=== PATIENT | male | born 1975 | race Caucasian/White ===

== ENCOUNTER → 2017-07-01 | Outpatient (CLI) | payer BC | LOC: GMAJ 11:35 | PROVIDERS: ATTEND Family Medicine | DX: Z00.00 Encounter for general adult medical examination without abnormal findings (principal) ==

== ENCOUNTER → 2017-10-12 | Outpatient (CLI) | payer BC | LOC: GMAJ 11:17 | PROVIDERS: ATTEND Family Medicine | DX: R53.83 Other fatigue (principal) ==

== ENCOUNTER → 2017-11-03 | Outpatient (CLI) | payer BC ==
--- NOTE | 2017-11-03 13:10 | US ---
EXAM DESCRIPTION: Liver CLINICAL HISTORY: 42 years Male, RUQ PAIN COMPARISON: None. TECHNIQUE: Right upper quadrant abdominal sonogram was performed. FINDINGS: Pancreas area is obscured by air in the stomach and other bowel gas. Liver length of 14.7 cm is normal. No focal liver lesion. Normal hepatic parenchymal echogenicity with normal smooth liver surface. Normal color flow in the portal vein which measures 9 mm in size. Normal appearance of hepatic veins. Gallbladder is present and no stones are depicted in the gallbladder lumen. A small polyp is seen in the gallbladder measuring 5 mm and another small polyp measures 2 mm. Third polyp measures 3 mm. Gallbladder wall thickness measures 2 mm. Common duct is normal in caliber measuring 5 mm. Right kidney measures 11.2 cm in length. Normal cortical thickness and echogenicity with no hydronephrosis. Cyst in the central left kidney is consistent with a parapelvic cyst 1.8 cm. Small cyst in the upper right kidney measures 9 mm. Positive color flow in the hilum of the right kidney. IMPRESSION: Small gallbladder polyps. No gallstones or evidence of acute cholecystitis. Small right renal cysts. Electronically signed by: Jose C Boyd MD 11/03/2017 1:08 PM CDT
== END ==
LOC: GMAJS 10:43
PROVIDERS: ATTEND Physician Assistant
DX: R10.84 Generalized abdominal pain (principal); N39.0 Urinary tract infection, site not specified; K82.4 Cholesterolosis of gallbladder; N28.1 Cyst of kidney, acquired

== ENCOUNTER → 2017-11-05 | Outpatient (CLI) | payer BC ==
--- NOTE | 2017-11-05 15:16 | NM ---
EXAM DESCRIPTION: Hepatobiliary w/CCK: Nuclear Medicine. CLINICAL HISTORY: R10.11. Right upper quadrant pain. COMPARISON: Ultrasound liver 11/03/2017. TECHNIQUE: Patient was given 8.2 mCi of technetium 99 M mebrofenin radiopharmaceutical IV. Anterior gamma camera images were obtained of the right upper quadrant at 1 minute intervals for one hour . The patient was then given 16 ounces ensure plus .(11 g of fat). Gallbladder ejection fraction was evaluated by measuring diminishing radioactivity in the gallbladder, over 30 min interval. FINDINGS: After radiopharmaceutical was administered, immediate visualization of the entire liver with no focal areas of increased or decreased activity. Timely visualization of intrahepatic ducts, Biliary ducts, gallbladder, and small intestine. After fatty meal was taken orally, patient and moderate right upper quadrant pain. Peak gallbladder activity almost immediately after fatty meal was ingested. Minimal amount of gallbladder activity at approximately 30 minutes after fatty meal was ingested. Decrease in activity during this interval was 18.3%. Low normal limit is 35%. IMPRESSION: 1. No intrahepatic or extrahepatic biliary obstruction. 2. Significantly decreased gallbladder ejection fraction. This is most likely related to acalculous cholecystitis, chronic cholecystitis, or gallbladder dyskinesia. Electronically signed by: Carlo Alaniz MD 11/05/2017 3:15 PM CDT
== END ==
LOC: NM 09:02
PROVIDERS: ATTEND Surgery
DX: R10.11 Right upper quadrant pain (principal)
CPT/HCPCS: 78227; A9537

== ENCOUNTER 2017-11-09 06:00 | Day surgery (SDC) | payer BC ==
[2017-11-09] MEDS ORDERED: ceFAZolin SODIUM 1 GM VIAL ONE (07:21)
[2017-11-09] MEDS ORDERED: SODIUM CHL 0.9% 100ML MINI-BAG 100 ML IVPB ONE (07:21)
[2017-11-09] MEDS: LACTATED RINGERS 1,000 ML ONE ×2 (09:50→12:57)
[2017-11-09] MEDS ORDERED: ATROPINE SULFATE 0.4 MG/ML 1ML VIAL IV ONE (10:00)
[2017-11-09] MEDS ORDERED: LIDOCAINE 1% 10 ML VIAL INJ ONE (10:00)
[2017-11-09] MEDS ORDERED: NEOSTIGMINE METHYLSULFATE 1 MG/ML ML IV ONE (10:00)
[2017-11-09] MEDS ORDERED: PROPOFOL 200 MG/20 ML VIAL IV ONE (10:00)
[2017-11-09] MEDS ORDERED: ROCURONIUM BROMIDE 10 MG/ML VIAL ONE (11:02)
[2017-11-09] MEDS ORDERED: fentaNYL CITRATE INJ 50 MCG/ML AMP ONE (11:03)
[2017-11-09] MEDS ORDERED: LIDOCAINE 2 % GEL 5 ML TUBE TOP ONE (11:03)
[2017-11-09] MEDS ORDERED: MIDAZOLAM INJ 5 MG/5 ML VIAL ONE (11:03)
[2017-11-09] MEDS: levoFLOXacin 500MG IV 100 ML IVPB ONE (11:07)
[2017-11-09] MEDS: BUPIVACAINE 0.25% W/EPI 50 ML VIAL INJ ONE (11:32)
[2017-11-09] MEDS: HEPARIN SODIUM (PORCINE) 10,000 UNITS/ML VIAL ONE (11:36)
[2017-11-09 13:08] VITALS: TEMP 97.7
--- NOTE | 2017-11-09 13:15 | OP ---
DATE OF PROCEDURE: 11/09/17 PREOPERATIVE DIAGNOSIS: 1. Right upper quadrant abdominal pain. 2. Fatty food intolerance. 3. Abnormal HIDA scan. POSTOPERATIVE DIAGNOSIS: 1. Right upper quadrant abdominal pain. 2. Fatty food intolerance. 3. Abnormal HIDA scan. 4. Chronic cholecystitis. 5. Cholesterolosis. PROCEDURE: 1. Laparoscopic cholecystectomy with intraoperative cholangiography using fluoroscopy. SURGEON: Bobby Fall MD. BRICKLAYER HELPER: None. ANESTHESIA: Local infiltration of 0.25% Marcaine with epinephrine and general endotracheal anesthesia. INDICATION: The patient is a 42-year-old male with right upper quadrant pain, fatty food intolerance with nausea. He has had ultrasound and CT scan which had question of gallbladder polyps, but no signs of inflammatory process. HIDA scan revealed a decreased ejection fraction last week. The patient was brought to the Surgical Suite today for cholecystectomy after the risks, benefits and alternatives to the procedure were discussed and accepted. FINDINGS: The gallbladder wall was mildly thickened. Intraoperative cholangiography revealed free flow into the duodenum with no filling defects or strictures noted. Examination of the gallbladder revealed at least two small polyps attached to the gallbladder wall consistent with cholesterolosis. DESCRIPTION OF PROCEDURE: After adequate general endotracheal anesthesia was obtained, the patient was prepped and draped in the usual sterile manner. Surgical time-out was taken. The infraumbilical area was infiltrated with local anesthesia. A curvilinear incision was fashioned and carried down through the subcutaneous tissue to the midline fascia using blunt dissection. Traction sutures were placed on either side of the midline. A small incision was made in the midline fascia and the peritoneum was opened bluntly. Chika trocar was introduced under direct vision into the abdominal cavity and fixed in place with the 20 mL balloon. CO2 was then insufflated until a pressure of 12 mmHg was reached and the abdomen was tympanitic in all four quadrants. When this was done, the laparoscope was introduced. The abdomen was inspected with the previously noted findings. The patient was then placed in reverse Trendelenburg position, turned to the left side. The upper abdominal ports were placed under direct vision. The gallbladder was grasped, retracted anteriorly and laterally. The neck of the gallbladder was retracted laterally. The triangle of Calot was then explored with the cystic duct and cystic artery identified and isolated. The cystic duct was hemoclipped once proximally. The cystic artery was hemoclipped twice proximally and once distally. A small incision was made in the cystic duct. The cholangiogram catheter was introduced through a separate stab wound in the right upper quadrant, introduced into the cystic duct and clipped in place. Cholangiograms were then taken using fluoroscopy which revealed free flow into the duodenum with no filling defects or strictures noted. When this was done, the cystic duct catheter was removed. The cystic duct was hemoclipped three times distally and divided between the hemoclips. The cystic artery was divided. The gallbladder was then dissected free from the gallbladder bed of the liver. A small amount of leakage was obtained from the gallbladder. The gallbladder was placed in an EndoCatch bag and removed from the infraumbilical port site in the usual manner under direct vision. When this was done, the subhepatic space and subphrenic space were irrigated copiously with saline. The effluent was noted to be clear and no longer bile stained. The elisabet hepatis was inspected and no bleeding or bile leak was identified. The gallbladder bed of the liver revealed no oozing. The upper abdominal ports were removed under direct vision and good hemostasis was noted. At this point, the CO2, the laparoscope and the infraumbilical port were removed. The infraumbilical port site fascia was approximated with a single [id number] suture of 0 Vicryl. Subcutaneous tissue was irrigated with saline. Skin edges were approximated with 4-0 Vicryl subcuticular sutures, benzoin and Steri-Strips. Sterile dressings were applied. The patient was awakened and taken to the Recovery Room in good and stable condition. Estimated blood loss was less than 50 mL. All sponge, needle and instrument counts were correct. #[id number] [facility]
[2017-11-09] MEDS: HYDROcodone 5MG/APAP 325MG 1 EA TAB ONE (13:35)
[2017-11-09 14:38] VITALS: BP 122/73; O2SAT 100
== END 2017-11-09 14:40 | disposition home or self-care (01) ==
LOC: AMB 06:00
PROVIDERS: ATTEND Surgery
DX: K81.1 Chronic cholecystitis (principal); K90.49 Malabsorption due to intolerance, not elsewhere classified; E11.9 Type 2 diabetes mellitus without complications; F32.9 Major depressive disorder, single episode, unspecified; K21.9 Gastro-esophageal reflux disease without esophagitis; F41.1 Generalized anxiety disorder; Z87.891 Personal history of nicotine dependence; Z88.0 Allergy status to penicillin; Z88.8 Allergy status to other drugs, medicaments and biological substances; Z79.84 Long term (current) use of oral hypoglycemic drugs; Z79.899 Other long term (current) drug therapy
CPT/HCPCS: 00790; 36415; 36416; 47563; 76000; 80053; 81001; 82150; 82948; 83690; 85025; J0690; J1644; J1956; J2250; J2710; J3010; J3490; J7050; J7120

== ENCOUNTER → 2019-10-04 | Outpatient (CLI) | payer BC | LOC: LAB.O 11:32 | PROVIDERS: ATTEND Nurse Practitioner Family | DX: D58.0 Hereditary spherocytosis (principal); E11.65 Type 2 diabetes mellitus with hyperglycemia; E78.1 Pure hyperglyceridemia ==

== ENCOUNTER 2019-10-20 05:42 | Day surgery (SDC) | payer BC ==
[2019-10-20] MEDS ORDERED: PROPOFOL 200 MG/20 ML VIAL IV ONE (07:00)
[2019-10-20] MEDS ORDERED: LIDOCAINE 1% 10 ML VIAL INJ ONE (07:00)
--- NOTE | 2019-10-20 11:01 | OP ---
DATE OF PROCEDURE: 10/20/19 PREOPERATIVE DIAGNOSIS: 1. Symptoms of reflux. POSTOPERATIVE DIAGNOSIS: 1. Symptoms of reflux. 2. Gastric polyps. PROCEDURE: 1. EGD with gastric polyp biopsy. 2. EGD with esophageal biopsy. SURGEON: Titi Walker MD ANESTHESIA: General and local. FINDINGS: He has a normal appearing duodenum. The distal stomach appeared normal. The proximal fundus and midbody had scattered inflammatory type polyps. Poising Inspector biopsies were taken of two. The esophagus appeared slightly pale, but otherwise normal with no obvious signs of esophagitis. The GE junction appeared normal. No hiatal hernia. PROCEDURE: General anesthesia was induced in the lateral position. Bite block in place. The endoscope was passed easily through into the second portion of the duodenum. There was no evidence of ulcer or bleeding seen. No gastric ulcers were seen. The pylorus appeared normal. On retroflexion, there was no hiatal hernia. We saw polyps in the fundus and the midbody. A lot of them appeared to be not uncommon inflammatory polyp. Poising Inspector biopsies were taken of two of these. Upon withdrawal, the Z-line appeared normal. The distal esophagus showed some paleness. Poising Inspector biopsies were taken. Upon further withdrawal, no abnormalities were demarco. The patient tolerated the procedure and was taken to Recovery to be discharged. #[id number] MTDD
[2019-10-20 11:46] VITALS: BP 134/86; TEMP 97.8; O2SAT 99
== END 2019-10-20 11:40 | disposition home or self-care (01) ==
LOC: AMB 05:42
PROVIDERS: ATTEND Surgery
DX: K21.0 Gastro-esophageal reflux disease with esophagitis (principal); K31.7 Polyp of stomach and duodenum; E11.9 Type 2 diabetes mellitus without complications; Z88.0 Allergy status to penicillin; Z88.8 Allergy status to other drugs, medicaments and biological substances; Z79.899 Other long term (current) drug therapy; Z87.891 Personal history of nicotine dependence
CPT/HCPCS: 00731; 36416; 43239; 82948; J3490

== ENCOUNTER → 2020-01-02 | Outpatient (CLI) | payer BC ==
--- NOTE | 2020-01-02 19:47 | MRI ---
Study: MRI of the Left Shoulder. Indication: INCOMPLETE ROTATOR CUFF TEAR OR RUPTURE OF LEFT SHOULDER Technique: Multiplanar, multi sequence MRI of the left shoulder was obtained without intravenous contrast. Comparison: None. Findings: Moderate hypertrophic AC joint osteoarthritis. Type II acromion with mild lateral downsloping. Trace subacromial/subdeltoid bursal fluid. Supraspinatus and infraspinatus tendinosis with a focal intermediate grade interstitial tear at the mid supraspinatus tendon insertion measuring 4 mm AP by 4 mm transverse and involving 50% of expected tendon thickness. Subscapularis tendinosis. Teres minor tendon intact. Mild atrophy and grade 1 fatty infiltration rotator cuff musculature. Long head biceps tendon intact. Circumferential labral truncation and fraying, most pronounced superiorly and posteriorly. Minimal glenohumeral joint osteoarthritis with a tiny joint effusion. No acute fracture. Thickening and edema inferior glenohumeral ligament which can be seen with adhesive capsulitis. Impression: Supraspinatus and infraspinatus tendinosis with focal intermediate grade interstitial tear at the mid supraspinatus tendon insertion. Subscapularis tendinosis. Mild atrophy and grade 1 fatty infiltration rotator cuff musculature. Circumferential labral truncation and fraying, most pronounced superiorly and posteriorly. Minimal glenohumeral joint osteoarthritis. Adhesive capsulitis. Moderate hypertrophic AC joint osteoarthritis. Electronically signed by: Santo Jiménez MD 01/02/2020 7:46 PM CDT
== END ==
LOC: MRI 10:37
PROVIDERS: ATTEND Family Medicine
DX: M75.112 Incomplete rotator cuff tear or rupture of left shoulder, not specified as traumatic (principal); S43.432A Superior glenoid labrum lesion of left shoulder, initial encounter; M75.02 Adhesive capsulitis of left shoulder; M19.012 Primary osteoarthritis, left shoulder; M75.92 Shoulder lesion, unspecified, left shoulder; M62.512 Muscle wasting and atrophy, not elsewhere classified, left shoulder